=== PATIENT | male | born 1995 | race Caucasian/White ===

== ENCOUNTER 2018-09-21 21:15 | Emergency (ER) | payer OTHER ==
[~2018-09-21] VITALS: Ht 182.9 cm; Wt 97.7 kg
[2018-09-21 23:09] VITALS: BP 127/78
== END 2018-09-21 23:27 | disposition home or self-care (01) ==
LOC: EMS 21:16
DX: S90.112A Contusion of left great toe without damage to nail, initial encounter (principal); W20.8XXA Other cause of strike by thrown, projected or falling object, initial encounter; Y93.89 Activity, other specified; Y92.89 Other specified places as the place of occurrence of the external cause; Y99.8 Other external cause status